=== PATIENT | female | born 1965 | race Caucasian/White ===

== ENCOUNTER 2019-07-22 06:53 | Day surgery (SDC) | payer OTHER ==
[~2019-07-22] VITALS: Ht 162.6 cm; Wt 134.3 kg
[~2019-07-22 06:53] MED LIST: AMBIEN 5 MG TABL5 M1 PO; MELATONIN3 MG PO; MOBIC7.5 MG PO; PROGESTERONE100 MG PO; VITAMIN D1000 UNI1 PO; WELLBUTRIN XL300 MG PO
[2019-07-22 07:59] LABS: HEMATOCRIT 36.5 % (37.0-47.0); HEMOGLOBIN 11.6 gm/dL (12.0-15.0)
[2019-07-22 08:07] VITALS: BP 138/69
[2019-07-22] MEDS ORDERED: TYLENOL WITH CO1 TA1 PO (10:36)
[2019-07-22] MEDS ORDERED: IBUPROFEN 600600 M1 PO (10:36)
[2019-07-22 10:47] VITALS: BP 138/69
--- NOTE | 2019-07-25 23:05 | PATH ---
[facility] [address] [place] [address] PATHOLOGY RPT PROCEDURE Name: LUCRECIA SALMERON Room #: DEP [facility].#: [id number] Admission: 07/22/19 Date of : 61 Discharge: 07/22/19 Report #: [id number] Path Case #: [id number] [facility] Accession Number: [id number] . 01 Material submitted: . endometrium - ENDOMETRIAL CURETTINGS . 01 Clinical history: . Abnormal uterine and vaginal bleeding . 02 Diagnosis: "Endometrial curettings", curettage: - Endometrium with disordered proliferative phase, focal breakdown and fragments of endometrial polyp; no malignancy seen. (CLW:caesar; 07/25/2019) QMS 07/25/2019 1102 Local . 02 Electronically signed: . Siria Miner MD, Pathologist NPI- [id number] . 01 Gross description: . Received in formalin, labeled "Lucrecia Salmeron, endometrial curettings", consists of friable, red-brown, hemorrhagic soft tissue admixed with mucus measuring 2.0 x 2.0 x 0.5 cm in aggregate. Entirely submitted in A1-A2. ([facility]; 07/22/2019) [facility] 07/22/2019 2019 [facility] . 02 Pathologist provided ICD-10: N84.0, N93.9 . 02 CPT . 664232 Specimen Comment: A courtesy copy of this report has been sent to Specimen Comment: [phone], . Specimen Comment: Report sent to / DR MADSEN Performed at: [address], [place] [id number] MD Sree Ham MD Phone: [phone] Performed at: [address] [id number] MD Angela Coker MD Phone: [phone]
--- NOTE | 2019-08-04 13:32 | O ---
[facility] [place] [address] OPERATIVE REPORT Name: ZACK SALMERON Room #: DEP [facility]#: [id number] Admission: 07/22/19 Attend Phys: Leila Gay DO Discharge: 07/22/19 Date of : 61 Report #: [id number] THIS REPORT FOR: //name// CC: Leila Mosqueda DATE OF SERVICE: 07/22/2019 PREOPERATIVE DIAGNOSES: 1. Menometrorrhagia. 2. Thickened endometrium. POSTOPERATIVE DIAGNOSES: 1. Menometrorrhagia. 2. Thickened endometrium. OPERATIVE PROCEDURE: Hysteroscopy, dilatation and curettage with NovaSure endometrial ablation. SURGEON: Dr. eLila Gay. ANESTHESIA: General. INTRAVENOUS FLUIDS: 700 mL. URINE OUTPUT: 200 mL. ESTIMATED BLOOD LOSS: 10 mL. COMPLICATIONS: None. FINDINGS: Thickened endometrium. DESCRIPTION OF PROCEDURE: The patient was taken to the operating room where general anesthesia was administered and found to be adequate. She was then prepped and draped in normal sterile fashion in dorsal lithotomy position. A red rubber catheter was placed in the patient's bladder. The bladder was drained of urine. A weighted speculum was placed in the patient's vagina. The anterior lip of the cervix was identified and grasped with a single tooth tenaculum. The cervix was then gently dilated with graduated Hanks dilators. The uterus was then gently sounded to approximately 9 cm and the cervical length was measured at approximately 4 mm. Hysteroscope was then inserted through the cervix, gently advanced into the uterus and a survey of the uterine cavity revealed thickened endometrium throughout. The hysteroscope was removed. Sharp curettage was performed circumferentially and NovaSure endometrial ablation was then began. The NovaSure handheld device was inserted through the cervix, [facility] [address] [place] [address] OPERATIVE REPORT Name: ZACK SALMEORN [id number] Admission: 07/22/19 Attend Phys: Leila Gay DO Discharge: 07/22/19 Date of : 61 Report #: [id number] gently advanced into the uterus and deployed. The length was set at 5 cm. The width was noted to be 2.6 cm. After cavity assessment was passed, then a 1.1 minute 26 seconds endometrial ablation cycle was performed. This was performed at a power of 72 shane. After completion of the endometrial ablation, the NovaSure was removed from the patient's uterus. The hysteroscope was reinserted. A good lower uterine ablation was noted. The fundal portion of the uterus was noted to still have pink endometrium removed. The tenaculum was removed from the patient's cervix. Excellent hemostasis was noted at the tenaculum site. The weighted speculum was removed from the patient's vagina. Hysteroscopic input was noted to be 1500 mL, output 1000 mL with a deficit of 500 mL. The patient tolerated the procedure well. Sponge, lap and instrument counts were reported as correct and the patient was taken to the recovery room in stable condition. <ELECTRONICALLY SIGNED> By: Leila Gay DO 08/04/19 1332 [id number] [id number] Leila Gay DO /nt
== END 2019-07-22 11:25 | disposition home or self-care (01) ==
LOC: OR 06:53 → TBA 08:04 → OR 11:23
PROVIDERS: Obstetrics & Gynecology
DX: N92.1 Excessive and frequent menstruation with irregular cycle (principal); R93.89 Abnormal findings on diagnostic imaging of other specified body structures; N84.0 Polyp of corpus uteri; N93.8 Other specified abnormal uterine and vaginal bleeding; N93.9 Abnormal uterine and vaginal bleeding, unspecified; F32.9 Major depressive disorder, single episode, unspecified; D64.9 Anemia, unspecified; Z98.84 Bariatric surgery status; Z98.890 Other specified postprocedural states; Z79.899 Other long term (current) drug therapy
CPT/HCPCS: 50010; 50101; 50386; 50445; 57160; 62110; 62900; 70005